=== PATIENT | female | born 1955 | race African-American/Black ===

== ENCOUNTER 2017-03-01 13:18 | Emergency (ER) | payer MEDICARE, OTHER ==
[~2017-03-01] VITALS: Ht 170.2 cm; Wt 108.4 kg
[2017-03-01 13:35] VITALS: BP 133/85
[2017-03-01] MEDS ORDERED: IBUPROFEN 400 MG TABLET. PO ONE (13:45)
[2017-03-01] MEDS ORDERED: IPRATRPIUM/ALBUTEROL 0.5/2.5MG 3 ML NEBU. NEB ONE (13:45)
--- NOTE | 2017-03-01 14:03 | RAD ---
Indication cough and sore chest for 3 days. PA and lateral views of the chest were obtained. No prior imaging of the chest is available. The heart and pulmonary vessels appear normal. The mediastinum has a normal appearance. The lungs are clear. There are mild degenerative changes in the thoracic spine. IMPRESSION: No acute finding apparent in the chest
[2017-03-01] MEDS ORDERED: PRED50TA PO (14:16)
[2017-03-01] MEDS ORDERED: PROAIR HFA8.5 GM INH (14:16)
--- NOTE | 2017-03-01 14:16 | PHYS DOC ---
Adult General Chief Complaint Chief Complaint: COUGH HPI HPI 61-year-old female presenting to the emergency department today with cough and congestion over the past few days. She has a history of asthma and has felt wheezing in her lungs. She also has muscle aches. She denies abdominal pain nausea vomiting diaphoresis fevers or chills. She denies headache neck stiffness or meningismus or vision changes. Review of systems is negative for shortness of breath abdominal pain nausea vomiting. All other review of systems is negative unless otherwise noted in history of present illness. Review of Systems Review of Systems SEE ABOVE. Current Medications Current Medications Current Medications Medications (Trade) Dose Ordered Sig/Mandy Start Time Stop Time Status Last Admin Dose Admin Albuterol/ Ipratropium (Duoneb) 3 ml 1X ONCE 03/01/17 13:45 03/01/17 13:46 UNV 03/01/17 14:02 3 ML Ibuprofen (Motrin) 400 mg 1X ONCE 03/01/17 13:45 03/01/17 13:46 UNV Physical Exam Physical Exam Constitutional: Well developed, well nourished, no acute distress, non-toxic appearance. HENT: Normocephalic, atraumatic, bilateral external ears normal, oropharynx moist, no oral exudates, nose normal. [] Eyes: PERRLA, EOMI, conjunctiva normal, no discharge. [] Neck: Normal range of motion, no tenderness, supple, no stridor. Cardiovascular:Heart rate regular rhythm, no murmur Lungs & Thorax: Mild wheezing bilaterally without crackles. Abdomen: Bowel sounds normal, soft, no tenderness, no masses, no pulsatile masses. Skin: Warm, dry, no erythema, no rash. Back: No tenderness, no CVA tenderness. [] Extremities: No tenderness, no cyanosis, no clubbing, ROM intact, no edema. [] Neurologic: Alert and oriented X 3, normal motor function, normal sensory function, no focal deficits noted. Psychologic: Affect normal, judgement normal, mood normal. [] Current Patient Data Vital Signs Vital Signs Date Time Temp Pulse Resp B/P (MAP) Pulse Ox O2 Delivery O2 Flow Rate FiO2 03/01/17 14:06 100 Room Air EKG EKG [] Radiology/Procedures Radiology/Procedures [] Course & Med Decision Making Course & Med Decision Making Pertinent Labs and Imaging studies reviewed. (See chart for details) [] 61-year-old female presenting to the emergency department today with cough and congestion. EKG unremarkable. Chest x-ray unremarkable. Patient was given a nebulizer and ibuprofen in the emergency department which improved her symptoms. She was subsequent discharged home on prednisone and an inhaler to follow up with her primary care physician the next 2-3 days. Dragon Disclaimer Dragon Disclaimer This electronic medical record was generated, in whole or in part, using a voice recognition dictation system. Departure Departure Impression: Primary Impression: Cough Additional Impression: Wheezing Disposition: HOME, SELF-CARE Condition: STABLE Referrals: REMINGTON ABERNATHY MD Patient Instructions: Cough, Adult Additional Instructions: Thank you for allowing us to participate in your care today. Followup with your primary care physician in 3 days if your symptoms do not improve. If you do not have a primary care provider you can ask for a list of our primary care providers. Return to the emergency department you have any new or concerning findings. This should be evaluated by the primary care physician and any necessary consulting services for continued management within a few days after discharge. Return to emergency room if you have any new or concerning symptoms including but not limited to fever, chills, nausea, vomiting, intractable pain, any new rashes, chest pain, shortness of air, uncontrolled bleeding, difficulty breathing, and/or vision loss. Scripts Prednisone (PREDNISONE) 50 Mg Tablet 50 MG PO DAILY, #5 TAB Prov: NELY MAC MD 03/01/17 Albuterol Sulfate (PROAIR HFA INHALER) 8.5 Gm Hfa.aer.ad 1 PUFF INH PRN Q6HRS Y for SHORTNESS OF BREATH, #1 INHALER 0 Refills Prov: NELY MAC MD 03/01/17 Problem Qualifiers NELY MAC MD March 01, 2017 14:16
--- NOTE | 2017-03-01 14:34 | EKG ---
[facility] [address] [place] [address] Test Date: 2017-03-01 Test Time: 14:19:46 Pat Name: DAWN TAMAYO Department: Room: Gender: F [employer]: : 1955 Requested By: NELY MAC Order Number: [id number] Reading MD: Heriberto Schwartz Measurements Intervals [place] Rate: 54 P: 44 MO: 170 QRS: 5 QRSD: 76 T: 46 QT: 476 QTc: 453 Interpretive Statements SINUS RHYTHM Electronically Signed On 03-04-2017 14:54:05 CDT by Heriberto Schwartz
== END 2017-03-01 14:50 | disposition home or self-care (01) ==
LOC: ER 14:46
DX: R05 Cough (principal); R06.2 Wheezing; R09.81 Nasal congestion; J45.909 Unspecified asthma, uncomplicated
CPT/HCPCS: 71020; 93005; 94250; 94640; 94760; 99284; J7620